=== PATIENT | male | born 1975 | race Caucasian/White ===

== ENCOUNTER 2016-07-01 07:49 | Emergency (ER) | payer OTHER ==
--- NOTE | ~2016-07-01 | CR63 ---
[facility] A Service of [facility] RADIOLOGY TEXT RESULTS PATIENT: SCOUT SAMUELS LOCATION: SED : 79 UNIT #: [id number] AGE: [address]: Jay Quinones MD SEX: M ORDER DR: [id number] [place] [address] [id number] E MR#: [id number] Acc #: [id number] NAME: SCOTU SAMUELS : 1975 SEX: M STUDY DATE/TIME: 07/01/2016 8:28 UNIT: SED ROOM: STUDY DESCRIPTION: CR Chest 2 View Attending Physician: Jay Quinones M.D. Ordering Physician: Jay Quinones M.D. Primary Care Physician: Jonathan Hinton M.D. MEDICAL IMAGING REPORT This report is preliminary unless electronic signature is present. EXAM PA and lateral chest INDICATION Cough, wheezing and shortness of breath since yesterday. COMPARISON 05/22/2014 FINDINGS The lungs are well expanded and clear. The heart size is normal. The visualized osseous structures are unremarkable. IMPRESSION No active disease. Dictated by... Chinedu Cardenas M.D. THIS IS AN ELECTRONICALLY VERIFIED REPORT Chinedu Cardenas M.D. at 07/01/2016 5:08 PM Corey TD: 07/01/2016 09:28 JOB #: [id number] MEDICAL IMAGING REPORT Page 1 of 1
[~2016-07-01 07:49] MED LIST: ADVAIR 100-501 EAC1 IH; ALBUTEROL MININEB NEB; ALBUTEROL17 GM INH; AMOXICILLIN PO; CIPRO PO; COMBIVENT U/D3 M1 INH; FLEXERIL10 M1 PO; MEDROL PO; NAPROSYN500 MG PO; NO MEDICATIONS; NORFLEX100 MG PO; PREDNISONE PO; PRIMATINE MIST; [UNRECOGNIZED DRUG - OTHER] PO
== END 2016-07-01 09:05 | disposition home or self-care (01) ==
LOC: SED 07:49
DX: J45.901 Unspecified asthma with (acute) exacerbation (principal); F41.9 Anxiety disorder, unspecified; Z88.1 Allergy status to other antibiotic agents
CPT/HCPCS: 71020; 94640; 99284

== ENCOUNTER 2016-09-28 23:00 | Inpatient (IN) | payer OTHER ==
[~2016-09-28] VITALS: Ht 182.9 cm; Wt 74.4 kg
--- NOTE | ~2016-09-28 | PN ---
Unit #: [id number] #: [id number] Patient: PARVEEN SAMUELS [id number] [facility] [address] [place] [address] [id number] I MR#: [id number] NAME: PARVEEN SAMUELS ROOM: P201 Age: 41 Sex: M Admission Date: 09/29/2016 : 1975 Attending Physician: Eloy Kaufman M.D. Admitting Physician: Eloy Kaufman M.D. Primary Care Physician: Devon Massey PROGRESS NOTES DATE 10/02/2016 DISCUSSION Parveen is demonstrating some improvement in his irritability and anxiety today, his mood is better with a brighter range of affect. He is alert and fully-oriented with no active psychosis. He denies SI today. ASSESSMENT Major depression. PLAN Anticipate discharge in the near future. Dictated by... Devon Colorado/nura TD: 10/07/2016 09:34 JOB #: [id number] RICHARD PROGRESS NOTES Page 1 of 1 X Eloy Kaufman MD PROGRESS NOTE
--- NOTE | ~2016-09-28 | DS ---
Unit #: [id number] #: [id number] Patient: PARVEEN SAMUELS [id number] [place] [address] [id number] I MR#: [id number] NAME: PARVEEN SAMUELS ROOM: [facility] Age: 41 Sex: M Admission Date: 09/29/2016 : 1975 Discharge Date: 10/03/2016 Attending Physician: Eloy Kaufman M.D. Primary Care Physician: Jonathan Hinton M.D. DISCHARGE SUMMARY REASON FOR ADMISSION Parveen is a 41-year-old man, who presented complaining of increased irritability and anxiety. He also felt irritable and paranoid and had cravings to use alcohol. He was unable to contract for safety and was admitted for stabilization. DIAGNOSTIC STUDIES Laboratory data, please see hospital chart. HOSPITAL COURSE Parveen was admitted and placed on suicide precautions. Effexor XR 75 mg daily for depression and anxiety was initiated with trazodone as needed at bedtime for insomnia. Buspirone was then added 10 mg twice daily for anxiety. Trazodone was ineffective and replaced by Seroquel 100 mg at bedtime. The patient's mood improved and he participated in appropriate unit groups and activities. On the date of discharge, he was able to contract for safety in the outpatient setting. DISCHARGE DIAGNOSES Teague I Major depression. Teague II Antisocial traits. Teague III history of asthma. Teague IV Teague V INSTRUCTIONS TO PATIENT [facility] care. DISCHARGE MEDICATIONS 1. Effexor XR 75 mg daily for depression 2. BuSpar 10 mg twice daily at 8:00 a.m. and 2:00 p.m. for anxiety 3. Seroquel 100 mg at bedtime as needed for insomnia CONDITION AT DISCHARGE Improved. PROGNOSIS [id number]. DIET AND ACTIVITY Per primary care doctor. Unit #: [id number] #: [id number] Patient: PARVEEN SAMUELS Dictated by... Devon Colorado/nura TD: 10/07/2016 08:23 JOB #: [id number] DISCHARGE SUMMARY Page 1 of 1 X Eloy Kaufman MD DISCHARGE SUMMARY
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
--- NOTE | ~2016-09-28 | PN ---
Unit #: [id number] #: [id number] Patient: PARVEEN SAMUELS [id number] [facility] [address] [place] [address] [id number] I MR#: [id number] NAME: PARVEEN SAMUELS ROOM: P201 Age: 41 Sex: M Admission Date: 09/29/2016 : 1975 Attending Physician: Eloy Kaufman M.D. Admitting Physician: Eloy Kaufman M.D. Primary Care Physician: Devon Massey PROGRESS NOTES DATE 10/01/2016 DISCUSSION Parveen did not sleep well last night, and did not take his p.r.n. of Seroquel because he did not realize it and had to be asked for. His mood remains somewhat irritable but he is polite and attempts to cooperate with the examination well. He is alert and fully oriented with no active psychosis and no SI. ASSESSMENT Major depression, generalized anxiety disorder. PLAN We will continue with current medication offerings and clarify the patient's access to medication. Dictated by... Devon Colorado/nura TD: 10/02/2016 11:11 JOB #: [id number] RICHARD PROGRESS NOTES Page 1 of 1 X Eloy Kaufman MD PROGRESS NOTE
--- NOTE | ~2016-09-28 | HP ---
Unit #: [id number] #: [id number] Patient: PARVEEN SAMUELS [id number] [place] [address] [id number] MR#: [id number] NAME: PARVEEN SAMUELS. ROOM: P201 Age: 41 Sex: M Admission Date: 09/29/2016 : 1975 Attending Physician: Eloy Kaufman M.D. Admitting Physician: Eloy Kaufman M.D. Primary Care Physician: Jonathan Hinton M.D. HISTORY AND PHYSICAL HISTORY AND PHYSICAL COMPLETED 09/29/2016 HISTORY OF PRESENT ILLNESS Parveen is a 41-year-old male, admitted on 09/29/[address] [place] [address] for anxiety and paranoia. PAST MEDICAL HISTORY Asthma. PAST SURGICAL HISTORY Jaw fracture with a surgical repair and placement. SOCIAL HISTORY He smokes a half pack of cigarettes daily, reports a history of alcoholism and drug abuse. His last use was greater than seven years ago. He is currently single and lives with his grandmother. FAMILY HISTORY Noncontributory. REVIEW OF SYSTEMS CONSTITUTIONAL: No fever or chills. HEENT: Denies any sore throat, ear pain or runny nose. CARDIOVASCULAR: Denies chest pain, irregular heart rhythm or palpitations. CHEST: Denies shortness of breath or cough. No hemoptysis. GASTROINTESTINAL: Denies nausea, vomiting, diarrhea or chronic constipation. ENDOCRINE: Denies history of increased thirst or urination. No recent significant weight loss or gain. GENITOURINARY: Denies dysuria, frequency, or hematuria. SKIN: Denies any rashes. HEMATOLOGIC: Denies history of increased bleeding or bruising. MUSCULOSKELETAL: Denies any hot, swollen joints. No generalized muscle pain. NEUROLOGIC: Denies problems with vision or speech. No frequent, severe headaches. No numbness, tingling or weakness in any extremities. Denies loss of bladder or bowel control. CURRENT MEDICATIONS ProAir inhaler ALLERGIES Unit #: [id number] #: [id number] Patient: PARVEEN SAMUELS No known drug allergies. PHYSICAL EXAMINATION GENERAL: Alert, oriented, no acute distress. VITAL SIGNS: Blood pressure 111/82, heart rate 91, temperature 98.3. HEIGHT: 6 feet 0 inches. WEIGHT: 164 pounds. SKIN: Warm and dry without rash or lesion. HEENT: Normocephalic. TMs not viewed. Oral and nasal passages clear. Conjunctivae clear. PERRLA. EOMs intact. NECK: Supple without lymphadenopathy or thyromegaly. HEART: Regular rate and rhythm without murmur. LUNGS: Clear. ABDOMEN: Soft, nontender. : Not done. EXTREMITIES: No evidence of cyanosis, clubbing or edema. Moves all without focal deficit. NEUROLOGICAL: Grossly within normal limits. Cranial Nerves: II: Visual johnson are intact. III, IV AND : Extraocular movements are intact. Pupils are equal, round and reactive to light. V: Facial sensation is grossly normal. VII: Facial movements and expression are normal. VIII: Auditory acuity grossly intact. IX, X: Uvula is midline. Phonation is normal. XI: Patient shrugs shoulders and turns head normally. XII: Tongue protrudes in the midline. Sensory and Motor Function: Sensory and motor sensation is grossly normal. Motor: moves all extremities well. Coordination: Gait is normal. Deep Tendon Reflexes: Intact. IMPRESSION Psychiatric admission. RECOMMENDATIONS Psychiatric, per psychiatrist. MEDICAL No contraindications to participating in facility's activities. MEDICAL PROGNOSIS Good. MEDICAL CONDITION Stable. Dictated by... Pedro Luis Barrios/nura TD: 09/29/2016 12:21 JOB #: [id number] Unit #: [id number] #: [id number] Patient: PARVEEN SAMUELS HISTORY AND PHYSICAL Page 1 of 1 X MIGUEL CASTELLON APRN HISTORY AND PHYSICAL
--- NOTE | ~2016-09-28 | PN ---
Unit #: [id number] #: [id number] Patient: PARVEEN SAMUELS [id number] [facility] [address] [place] [address] [id number] I MR#: [id number] NAME: PARVEEN SAMUELS ROOM: P201 Age: 41 Sex: M Admission Date: 09/29/2016 : 1975 Attending Physician: Eloy Kaufman M.D. Admitting Physician: Eloy Kaufman M.D. Primary Care Physician: Deovn Massey NOTES DATE OF SERVICE: 09/30/2016 DISCUSSION Parveen continues to have anxiety and irritability. He used trazodone last night without benefit and had difficulty sleeping. He is alert and fully oriented today. Memory and concentration are fair. His thought processes are logical, but nonpsychotic and he continues to report some suicidal ideation and some mild paranoia. ASSESSMENT Major depression. PLAN We will change trazodone to Seroquel 100 mg at bedtime to improve sleep and add buspirone 10 mg b.i.d. at 8:00 a.m. and 2:00 p.m. for anxiety. Dictated by... Devon ColoradoH/yuko TD: 09/30/2016 13:09 JOB #: [id number] RICHARD [facility] NOTES Page 1 of 1 X Eloy Kaufman MD X PROGRESS NOTE
[2016-09-29 09:43] LABS: BASOPHIL# 0.1 X10e3 (0-0.3); BASOPHIL% 0.7 % (0-2.5); EOSINOPHIL# 0.4 X10e3 (0-0.7); EOSINOPHIL% 4.8 % (0.0-7.0); HEMATOCRIT 44.5 % (38.0-50.0); LYMPHOCYTE% 38.5 % (17.0-45.0); MEAN CELL VOLUME 88.9 FL (83-96); MEAN CORPUSCULAR HGB CONC 33.7 g/dL (30-36); MEAN PLATELET VOLUME 10.5 FL (6.5-11.5); MONOCYTE# 0.6 X10e3 (0-1.0); MONOCYTE% 7.5 % (3.0-12.0); NEUTROPHIL# 3.8 X10e3 (1.5-7.1); NEUTROPHIL% 48.5 % (40-75); PLATELET COUNT 235 X10e3 (140-420); RED BLOOD COUNT 5.01 X10e (3.90-5.60); RED CELL DISTRIBUTION WIDTH 13.1 % (11.0-15.5); WHITE BLOOD COUNT 7.8 X10e3 (4.0-10.5)
[2016-09-29 09:52] LABS: DIFF IND NO
[2016-09-29 10:31] LABS: ALBUMIN SERUM 3.4 g/dL (3.5-5.0); BILIRUBIN,TOTAL 0.6 mg/dL (0.2-2.0); BUN/CREATININE RATIO 14.54; CALCIUM SERUM 8.8 mg/dL (8.4-10.2); CREATININE SERUM 1.1 mg/dL (0.6-1.4); GLOM FILT RATE Estimated 84.1 mL/min (>60); PROTEIN TOTAL SERUM 5.8 g/dL (6.0-8.3)
[2016-09-30 10:25] LABS: AMPHETAMINE NEG (NEG); BARBITURATES NEG (NEG); BENZODIAZEPINES NEG (NEG); COCAINE NEG (NEG); MARIJUANA NEG (NEG); OPIATES NEG (NEG); TRICYCLIC ANTIDEPRESSANTS NEG (NEG); U METHADONE NEG (NEG)
== END 2016-10-03 15:05 | disposition home or self-care (01) | DRG 885 ==
LOC: P2S 09-29 01:24
PROVIDERS: Psychiatry & Neurology Psychiatry
DX: F33.2 Major depressive disorder, recurrent severe without psychotic features (principal); R45.851 Suicidal ideations; F60.2 Antisocial personality disorder; J45.909 Unspecified asthma, uncomplicated; Z81.1 Family history of alcohol abuse and dependence; Z81.3 Family history of other psychoactive substance abuse and dependence; Z88.0 Allergy status to penicillin
CPT/HCPCS: 80053; 80307; 85025

== ENCOUNTER 2016-10-04 23:00 | Inpatient (IN) | payer OTHER ==
[~2016-10-04] VITALS: Ht 182.9 cm; Wt 74.8 kg
--- NOTE | ~2016-10-04 | PN ---
Unit #: [id number] #: [id number] Patient: PARVEEN SAMUELS [id number] [facility] [address] [place] [address] [id number] I MR#: [id number] NAME: PARVEEN SAMUELS ROOM: P171 Age: 41 Sex: M Admission Date: 10/05/2016 : 1975 Attending Physician: Eloy Kaufman M.D. Admitting Physician: Eloy Kaufman M.D. Primary Care Physician: Devon Massey PROGRESS NOTES DATE 10/08/2016 DISCUSSION Parveen continues to show improvement today. His anxiety is a little better but depression remains issue. His affect is congruent with a depressed mood. He is alert and fully oriented. His memory and concentration are intact. His thought processes are logical with no psychosis. He does continue to ruminate on suicidal ideation. ASSESSMENT Major depression. PLAN Continue Effexor, BuSpar and Seroquel at current doses. Dictated by... Devon Colorado/fuentes TD: 10/09/2016 18:48 JOB #: [id number] RICHARD PROGRESS NOTES Page 1 of 1 X Eloy Kaufman MD X PROGRESS NOTE
--- NOTE | ~2016-10-04 | PN ---
Unit #: [id number] #: [id number] Patient: PARVEEN SAMUELS [id number] [facility] [address] [place] [address] [id number] I MR#: [id number] NAME: PARVEEN SAMUELS ROOM: P171 Age: 41 Sex: M Admission Date: 10/05/2016 : 1975 Attending Physician: Eloy Kaufman M.D. Admitting Physician: Eloy Kaufman M.D. Primary Care Physician: Devon Massey PROGRESS NOTES DATE OF SERVICE: 10/06/2016 DISCUSSION Parveen is continued to be irritable and somewhat anxious today. He is participating in unit groups and activities and is appropriate with his peers and staff. He is alert and fully oriented with no evidence of psychosis. He does continue to report suicidal ideation. ASSESSMENT Major depression. PLAN Continue with Effexor XR 150 mg daily and increase today. Dictated by... Devon ColoradoH/yuko TD: 10/06/2016 12:05 JOB #: [id number] RICHARD PROGRESS NOTES Page 1 of 1 X Eloy Kaufman MD PROGRESS NOTE
--- NOTE | ~2016-10-04 | HP ---
Unit #: [id number] #: [id number] Patient: SCOUT SAMUELS [id number] [place] [address] [id number] I MR#: [id number] NAME: SCOUT SAMUELS ROOM: 71 Age: 41 Sex: M Admission Date: 10/05/2016 : 1975 Attending Physician: Eloy Kaufman M.D. Admitting Physician: Eloy Kaufman M.D. Primary Care Physician: Jonathan Hinton M.D. HISTORY AND PHYSICAL REASON FOR ADMISSION Acute psychiatric inpatient admission. HISTORY OF PRESENT ILLNESS The patient is a 41-year-old male with active suicidal ideation, prior history of anxiety and paranoia, who was admitted secondary to visual hallucinations as well as above. PAST MEDICAL HISTORY Paranoia, anxiety, asthma, underlying mental illness has been documented in the past. SOCIAL HISTORY The patient is positive alcohol, tobacco, marijuana. HOME MEDICATIONS Effexor, Seroquel, BuSpar, albuterol. ALLERGIES Penicillin/amoxicillin. REVIEW OF SYSTEMS Please see HPI. Twelve point otherwise negative except for those positive noted in the HPI. PHYSICAL EXAMINATION GENERAL: Awake, alert, oriented to person, place, and time. Well built, well nourished. Does not appear to be in any acute distress. HEAD: Atraumatic. Normocephalic. EYES: Bilateral extraocular muscles are normal. Pupils equal, reactive to light and accommodation. Sclerae are normal. No jaundice. NECK: Neck is supple. No neck rigidity. No thyromegaly. No carotid bruit. No JVD. Oral mucosa is moist. CHEST: Bilateral vesicular breathing. Clear to auscultation. No basilar rales. CARDIOVASCULAR: S1 and S2 normal. No murmur, no gallop, no rub. ABDOMEN: Soft, nontender. No organomegaly. Bowel sounds are normal. No hernia, no masses, no rebound, no guarding. EXTREMITIES: No pitting edema. No calf tenderness. Extremity pulses, including dorsalis pedis, have good volume. BACK: Normal spine curvature. No spine tenderness. No costovertebral angle tenderness. SENIOR APPLICATIONS ENGINEER: Cranial nerves normal bilaterally. Motor function bilaterally Unit #: [id number] #: [id number] Patient: SAMUELS,SCOUT R symmetric and normal. Sensory system normal. SKIN: Warm and dry. INITIAL IMPRESSION Acute psychiatric inpatient admission. PLAN As per psychiatrist, medical condition stable, medical prognosis is fair. There are no medical contraindications to patient participating in activities while here at [facility]. Dictated by... Subhash Marie M.D. CACHORRO/yuko TD: 10/05/2016 14:59 JOB #: [id number] HISTORY AND PHYSICAL Page 1 of 1 X Subhash Marie MD X HISTORY AND PHYSICAL
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
--- NOTE | ~2016-10-04 | PN ---
Unit #: [id number] #: [id number] Patient: PARVEEN SAMUELS [id number] [facility] [address] [place] [address] [id number] MR#: [id number] NAME: PARVEEN SAMUELS ROOM: P171 Age: 41 Sex: M Admission Date: 10/05/2016 : 1975 Attending Physician: Eloy Kaufman M.D. Admitting Physician: Eloy Kaufman M.D. Primary Care Physician: Devon Massey PROGRESS NOTES DATE OF SERVICE: 10/07/2016 DISCUSSION Parveen reports he had difficulty sleeping again last night, and is irritable and anxious in group this morning. He reports extremely poor sleep, but nursing notes say that he was only out once for shortness of air and otherwise was in good shape. He is alert and fully oriented with no psychosis. He is unable to contract for safety outside of the hospital today. ASSESSMENT Major depression. PLAN We will continue current medication, plan, and precaution levels. Dictated by... Devon Colorado/yuko TD: 10/07/2016 11:24 JOB #: [id number] RICHARD WESTBROOK NOTES Page 1 of 1 X Eloy Kaufman MD PROGRESS NOTE
--- NOTE | ~2016-10-04 | DS ---
Unit #: [id number] #: [id number] Patient: SCOUT SAMUELS [id number] [facility] [address] [place] [address] [id number] I MR#: [id number] NAME: SCOUT SAMUELS ROOM: 71 Age: 41 Sex: M Admission Date: 10/05/2016 : 1975 Discharge Date: 10/09/2016 Attending Physician: Eloy Kaufman M.D. Primary Care Physician: Jonathan Hinton M.D. DISCHARGE SUMMARY REASON FOR ADMISSION He is a 41-year-old man who was discharged from this facility less than 48 hours prior to this admission. He reported that complications arose following his discharge including his inability to get his medications filled, increasing anxiety and recurrence of suicidal ideation. He was unable to contract safety and was readmitted. LABORATORY DATA: Please see hospital chart. HOSPITAL COURSE Patient was admitted and placed on suicide precautions. Effexor XR was increased to 150 mg daily and BuSpar 10 mg b.i.d. and Seroquel 100 mg at bedtime were continued. He participated appropriate in unit groups and activities although his anxiety and irritability occasionally interfered with his willingness to participate. He tolerated medications well on the date of discharge he had calm considerably. He also showed improved insight and the need to straighten out his insurance situations so that his medications can be obtained outside the hospital. He stated that his family is assisting him with this action DISCHARGE DIAGNOSIS AXIS I Major depression. AXIS II Some antisocial traits. AXIS III History of asthma. INSTRUTUION TO PATIENT Follow up with Dionte Dyson. DISCHARGE MEDICATIONS 1. Effexor XR 150 mg daily for depression and anxiety. 2. BuSpar 10 mg twice daily at 8 a.m. and 2:00 p.m. for anxiety. 3. Seroquel 100 mg at bedtime for insomnia. CONDITION ON DISCHARGE Improved Prognosis Fair to good. DIET AND ACTIVITY Per primary care doctor Unit #: [id number] #: [id number] Patient: SCOUT SAMUELS Dictated by... Devon Colorado/tessie TD: 10/10/2016 02:24 JOB #: [id number] DISCHARGE SUMMARY Page 1 of 1 X Eloy Kaufman MD DISCHARGE SUMMARY
== END 2016-10-09 11:09 | DRG 885 ==
LOC: P1E 10-05 01:32
DX: F33.9 Major depressive disorder, recurrent, unspecified (principal); F60.2 Antisocial personality disorder; Z88.0 Allergy status to penicillin; J45.909 Unspecified asthma, uncomplicated; Z81.1 Family history of alcohol abuse and dependence; Z81.3 Family history of other psychoactive substance abuse and dependence

== ENCOUNTER 2016-11-18 18:02 | Inpatient (IN) | payer OTHER ==
[~2016-11-18] VITALS: Ht 185.4 cm; Wt 70.8 kg
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
--- NOTE | ~2016-11-18 | HP ---
Unit #: [id number] #: [id number] Patient: PARVEEN SAMUELS [id number] [place] [address] [id number] I MR#: [id number] NAME: PARVEEN SAMUELS ROOM: [facility] Age: 41 Sex: M Admission Date: 11/18/2016 : 1975 Attending Physician: Eloy Kaufman M.D. Admitting Physician: Eloy Kaufman M.D. Primary Care Physician: Jonathan Hinton M.D. HISTORY AND PHYSICAL HISTORY OF PRESENT ILLNESS Parveen is a 41 year old admitted to [address] [place] [address] with increased anxiety and after reporting visual hallucinations. He has had other admissions to this facility for the same. PAST MEDICAL HISTORY Asthma. PAST SURGICAL HISTORY Jaw. ALLERGIES Penicillin. SOCIAL HISTORY He smokes 1 pack per day. Denies alcohol and admits to using marijuana. FAMILY HISTORY Medically noncontributory. REVIEW OF SYSTEMS CONSTITUTIONAL: No fever or chills. HEENT: Denies any sore throat, ear pain or runny nose. CARDIOVASCULAR: Denies chest pain, irregular heart rhythm or palpitations. CHEST: Denies shortness of breath or cough. No hemoptysis. GASTROINTESTINAL: Denies nausea, vomiting, diarrhea or chronic constipation. ENDOCRINE: Denies history of increased thirst or urination. No recent significant weight loss or gain. GENITOURINARY: Denies dysuria, frequency, or hematuria. SKIN: Denies any rashes. HEMATOLOGIC: Denies history of increased bleeding or bruising. MUSCULOSKELETAL: Denies any hot, swollen joints. No generalized muscle pain. NEUROLOGIC: Denies problems with vision or speech. No frequent, severe headaches. No numbness, tingling or weakness in any extremities. Denies loss of bladder or bowel control. CURRENT MEDICATIONS 1. Effexor XR 150 mg q.a.m. 2. BuSpar 10 mg b.i.d. 3. Proventil inhaler p.r.n. 4. Milk of Magnesia p.r.n. Unit #: [id number] #: [id number] Patient: PARVEEN SAMUELS 5. Maalox p.r.n. 6. Tylenol p.r.n. 7. Seroquel 100 mg q.h.s. PHYSICAL EXAMINATION GENERAL: Alert, well-nourished, in no apparent distress. VITAL SIGNS: Blood pressure 122/68, heart rate 72, respirations 16, temperature 98.6. WEIGHT: 156. HEIGHT: 6 feet 1 inch. SKIN: Warm and dry without rash or lesion. HEENT: Normocephalic. TMs not viewed. Oral and nasal passages clear. Conjunctivae clear. PERRLA. EOMs intact. NECK: Supple without lymphadenopathy or thyromegaly. HEART: Regular rate and rhythm without murmur. LUNGS: Clear. ABDOMEN: Soft, nontender. : Not done. EXTREMITIES: No evidence of cyanosis, clubbing or edema. Moves all without focal deficit. NEUROLOGICAL: Grossly within normal limits. Cranial Nerves: II: Visual johnson are intact. III, IV AND : Extraocular movements are intact. Pupils are equal, round and reactive to light. V: Facial sensation is grossly normal. VII: Facial movements and expression are normal. VIII: Auditory acuity grossly intact. IX, X: Uvula is midline. Phonation is normal. XI: Patient shrugs shoulders and turns head normally. XII: Tongue protrudes in the midline. Sensory and Motor Function: Sensory and motor sensation is grossly normal. Motor: moves all extremities well. Coordination: Gait is normal. Deep Tendon Reflexes: Intact. IMPRESSION Psychiatric admission. RECOMMENDATIONS PSYCHIATRIC: Per psychiatrist. MEDICAL: See no contraindication to participate in facility's activities. MEDICAL PROGNOSIS Good. MEDICAL CONDITION Stable. Dictated by... Palma Garcia P.A.-C. for Devon Mosher/fuentes TD: 11/19/2016 15:37 JOB #: [id number] Unit #: [id number] #: [id number] Patient: PARVEEN SAMUELS HISTORY AND PHYSICAL Page 1 of 1 X Palma Garcia HISTORY AND PHYSICAL
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
[2016-11-19 13:14] LABS: AMPHETAMINE NEG (NEG); BARBITURATES NEG (NEG); BENZODIAZEPINES NEG (NEG); COCAINE NEG (NEG); MARIJUANA NEG (NEG); OPIATES NEG (NEG); TRICYCLIC ANTIDEPRESSANTS NEG (NEG); U METHADONE NEG (NEG)
== END 2016-11-23 17:30 | disposition left against medical advice (07) | DRG 885 ==
LOC: P2L 19:42 → P1S 11-22 20:55 → P1E 11-23 11:46
PROVIDERS: Psychiatry & Neurology Psychiatry
DX: F33.3 Major depressive disorder, recurrent, severe with psychotic symptoms (principal); F60.2 Antisocial personality disorder; J45.909 Unspecified asthma, uncomplicated; T14.91 Suicide attempt; Z88.0 Allergy status to penicillin; Z81.1 Family history of alcohol abuse and dependence; Z81.3 Family history of other psychoactive substance abuse and dependence; F17.200 Nicotine dependence, unspecified, uncomplicated
CPT/HCPCS: 80307; J2060; J3486